=== PATIENT | female | born 1945 | race Caucasian/White ===

== ENCOUNTER 2020-03-07 12:19 | Outpatient (CLI) | payer MEDICARE, SELFPAY ==
--- NOTE | ~2020-03-07 | MM_ITS ---
EXAMINATION: MM screening david BI w elvis HISTORY: Screening mammogram TECHNIQUE: Craniocaudal and mediolateral oblique 3-D tomosynthesis images were obtained and synthetic 2-D images were generated. CAD analysis was submitted and interpreted. COMPARISON: 10/29/2017, 12/03/2015, 11/29/2013 bilateral digital screening mammogram examinations BREAST PARENCHYMAL COMPOSITION: There are scattered areas of fibroglandular density. FINDINGS: There is no evidence of suspicious mass, calcification, or architectural distortion to sugg est malignancy in either breast. There has been no suspicious interval change. IMPRESSION: 1. No mammographic evidence of malignancy. 2. Recommend routine screening mammography in one year. BI-RADS Category 1: Negative Reviewed, dictated and finalized at location A. [employer]
== END 2020-03-07 12:20 | disposition home or self-care (01) ==
LOC: ANHIMG 12:27
PROVIDERS: Family Provider Family Medicine Adolescent Medicine; PCP Family Medicine Adolescent Medicine; Visit Provider Family Medicine Adolescent Medicine
DX: Z12.31 Encounter for screening mammogram for malignant neoplasm of breast (principal)
CPT/HCPCS: 77063; 77067

== ENCOUNTER 2022-01-20 00:18 | Day surgery (SDC) | payer MEDICARE, SELFPAY ==
[2022-01-05 13:20] VITALS: BMI 31.8
[2022-01-20 06:29] VITALS: BMI 31.6
[2022-01-20 06:32] VITALS: BP 131/79; PULSE 95; RESP 20; TEMP 36.2; O2SAT 97
[2022-01-20] MEDS: LACTATED RINGERS 1,000 ML 150 ML IV CONT (06:39)
[2022-01-20 06:44] LABS: Glucose Point of Care 151 mg/dl (65-105)
--- NOTE | 2022-01-20 06:46 | WPDANESEPPF ---
Anes - Initial Pre Proc Eval Procedure: Operation Date: 01/20/22 07:30 Proposed Procedures p Colonoscopy - Vignesh Pineda MD Date/Time: 01/20/22 06:46 Surgeon: Vignesh Pineda MD Pre Op Diagnosis: occult GI bleed Patient Data Age: 76 Gender: F Height: 1.65 m Weight: 86.3 kg Last Vital Signs Temp 36.2 C L 01/20/22 06:32 Pulse 95 01/20/22 06:32 Resp 20 01/20/22 06:32 BP 131/79 01/20/22 06:32 Pulse Ox 97 01/20/22 06:32 O2 Del Method Room Air 01/20/22 06:32 Allergies Allergy/AdvReac Type Severity Reaction Status Date / Time No Known Allergies Allergy Verified 01/20/22 06:27 Home Medications Medication Instructions Recorded Confirmed Type hydrochlorothiazide 25 mg tablet See Rx Instructions .Route 10/01/21 01/05/22 Rx .COMPLEX #90 tabs lisinopril 10 mg tablet 10 mg PO DAILY #90 tabs 10/01/21 01/05/22 Rx meloxicam 15 mg tablet See Rx Instructions .Route 10/01/21 01/05/22 Rx .COMPLEX #90 tabs venlafaxine 37.5 mg See Rx Instructions .Route 10/01/21 01/05/22 Rx capsule,extended release 24 hr .COMPLEX #90 caps cranberry 400 mg capsule 400 mg PO DAILY 11/25/21 01/05/22 History fluconazole 100 mg tablet 100 mg PO DAILY #10 tabs 11/25/21 01/05/22 Rx multivitamin with minerals 1 tablet PO DAILY 11/25/21 01/05/22 History (Hair,Skin and Nails tablet) vhpgcvgfehcr-yrrfaslq-fgauauf-folic 1 tablet PO DAILY 11/25/21 01/05/22 History acid 400 mcg-vit K1 20 mcg tablet (One-A-Day Women's 50 Plus) vitamin B complex (B 1 tablet PO DAILY 11/25/21 01/05/22 History Complex-Vitamin B12 tablet) vitamin E (dl, acetate) 45 mg (100 45 mg PO DAILY 11/25/21 01/05/22 History unit) capsule sodium,potassium,mag sulfates 17.5 See Rx Instructions PO .COMPLEX 12/03/21 Rx gram-3.13 gram-1.6 gram oral soln #354 mL (Suprep Bowel Prep Kit) omeprazole 40 mg capsule,delayed 40 mg PO BID #60 caps 12/19/21 01/05/22 Rx release acarbose 25 mg tablet 25 mg PO TID #90 tabs 12/22/21 01/05/22 Rx simvastatin 20 mg tablet See Rx Instructions .Route 12/31/21 01/05/22 Rx .COMPLEX #90 tabs Laboratory Tests 01/20/22 06:38 POC Capillary Glucose 151 mg/dl H mg/dl (65-105) Patient hx anesthesia problems: none Family hx anesthesia problems: none Results Review: All pre-operative results and documents have been reviewed as part of the pre-operative evaluation. [facility] Past Medical History Medical History (Updated 01/20/22 @ 06:46 by Prosper Valencia DO) Asthma Diabetes type 2, controlled Essential (primary) hypertension Hx of ovarian cyst Mixed hyperlipidemia Personal history of colonic polyps Surgical History Surgical History (Updated 11/14/21 @ 07:28 by Andrés Young MD) History of partial hysterectomy (1988) Hx of bilateral oophorectomy (2000) Hx of cystoscopy (2007) remove ureteral stone Family History Family History (Updated 11/12/21 @ 13:46 by Neil Cheng MA) Father Diabetes mellitus Mother Heart disease Sibling Diabetes mellitus Sibling Diabetes mellitus Grandparent Skin cancer Social History Social History Smoking status: Never smoker Alcohol intake: never Substance use: never Substance use type: does not use Living arrangements: with family Spiritual care concerns: No Anes - Eval Final PreProcedure Day of Procedure 01/20/22 06:46 Patient weight: obese Heart: regular rate and rhythm Lungs: clear to auscultation Airway: Mallampati scale class II Neurological: alert and oriented Last oral intake: >/= 8 hours ASA classification: III Emergent: no Anesthetic plan: proceed Anesthesia type and monitoring: general GIVS and standard monitoring Results Review: All pre-operative results and documents have been reviewed as part of the pre-operative evaluation. Informed Consent: The patient's anesthetic plan and its attendant risks and benefits were discussed with the patient/family/POACourtney Brothers
--- NOTE | 2022-01-20 07:55 | PM.HPGS ---
History of Present Illness History of Present Illness Consent: Risks, benefits, and alternatives have been discussed and questions answered. Patient agrees to proceed with procedure. Chief complaint: occult GI bleed Narrative: Silvia Vicente is a 76 year old female Presents for colonoscopy. Patient's last colonoscopy was 10 years ago was unremarkable. Patient recently found to have positive stool Hemoccult. For this reason colonoscopy requested patient reports a tendency to constipation. Previously told she had irritable bowel syndrome. Family history noncontributory. Review of Systems Review of Systems: Review of systems noncontributory. [facility] Past Medical History Medical History (Updated 01/20/22 @ 06:46 by Prosper Valencia DO) Asthma Diabetes type 2, controlled Essential (primary) hypertension Hx of ovarian cyst Mixed hyperlipidemia Personal history of colonic polyps Surgical History Surgical History (Updated 11/14/21 @ 07:28 by Andrés Young MD) History of partial hysterectomy (1988) Hx of bilateral oophorectomy (2000) Hx of cystoscopy (2007) remove ureteral stone Family History Family History (Updated 11/12/21 @ 13:46 by Neil Cheng MA) Father Diabetes mellitus Mother Heart disease Sibling Diabetes mellitus Sibling Diabetes mellitus Grandparent Skin cancer Social History Social History Smoking status: Never smoker Alcohol intake: never Substance use: never Substance use type: does not use Living arrangements: with family Spiritual care concerns: No Meds Home Medications and Allergies Home Medications Medication Instructions Recorded Confirmed Type hydrochlorothiazide 25 mg tablet See Rx Instructions .Route 10/01/21 01/05/22 Rx .COMPLEX #90 tabs lisinopril 10 mg tablet 10 mg PO DAILY #90 tabs 10/01/21 01/05/22 Rx meloxicam 15 mg tablet See Rx Instructions .Route 10/01/21 01/05/22 Rx .COMPLEX #90 tabs venlafaxine 37.5 mg See Rx Instructions .Route 10/01/21 01/05/22 Rx capsule,extended release 24 hr .COMPLEX #90 caps cranberry 400 mg capsule 400 mg PO DAILY 11/25/21 01/05/22 History fluconazole 100 mg tablet 100 mg PO DAILY #10 tabs 11/25/21 01/05/22 Rx multivitamin with minerals 1 tablet PO DAILY 11/25/21 01/05/22 History (Hair,Skin and Nails tablet) qifyazgleirm-bzrjjptc-qxnizob-folic 1 tablet PO DAILY 11/25/21 01/05/22 History acid 400 mcg-vit K1 20 mcg tablet (One-A-Day Women's 50 Plus) vitamin B complex (B 1 tablet PO DAILY 11/25/21 01/05/22 History Complex-Vitamin B12 tablet) vitamin E (dl, acetate) 45 mg (100 45 mg PO DAILY 11/25/21 01/05/22 History unit) capsule sodium,potassium,mag sulfates 17.5 See Rx Instructions PO .COMPLEX 12/03/21 Rx gram-3.13 gram-1.6 gram oral soln #354 mL (Suprep Bowel Prep Kit) omeprazole 40 mg capsule,delayed 40 mg PO BID #60 caps 12/19/21 01/05/22 Rx release acarbose 25 mg tablet 25 mg PO TID #90 tabs 12/22/21 01/05/22 Rx simvastatin 20 mg tablet See Rx Instructions .Route 12/31/21 01/05/22 Rx .COMPLEX #90 tabs Allergies Allergy/AdvReac Type Severity Reaction Status Date / Time No Known Allergies Allergy Verified 01/20/22 06:27 Vital Signs Vital Signs - 24 hr 01/20/22 06:32 Temperature 97.2 F L Pulse Rate 95 Respiratory Rate 20 Blood Pressure 131/79 Pulse Oximetry 97 Oxygen Delivery Room Air Exam Narrative: Physical exam reveals patient to be alert. Vital signs stable. HEENT exam is unremarkable. Patient is anicteric. Lungs are clear to auscultation and percussion. Heart is without murmur or extra sounds. Abdomen bowel sounds are present soft nontender with no organomegaly. Digital external rectal exam is normal. Assessment and Plan Assessment and plan (1) Positive occult stool blood test: Code(s): R19.5 - Other fecal abnormalities Status: Acute Assessment and Plan: Patient with positive stool for
[2022-01-20 07:58] VITALS: BP 116/62; PULSE 91; RESP 17; O2SAT 99
[2022-01-20 08:08] VITALS: BP 122/61; PULSE 77; RESP 21; O2SAT 99
[2022-01-20 08:18] VITALS: BP 120/68; PULSE 74; RESP 18; O2SAT 99
== END 2022-01-20 08:26 | disposition home or self-care (01) ==
PROVIDERS: PCP Family Medicine Adolescent Medicine; Visit Provider Internal Medicine Gastroenterology
PROC: 0DJD8ZZ Inspection of Lower Intestinal Tract, Via Natural or Artificial Opening Endoscopic (ICD-10-PCS; CPT 45378; principal; 2022-01-20 07:30)
DX: Z12.11 Encounter for screening for malignant neoplasm of colon (principal); D12.2 Benign neoplasm of ascending colon; K64.8 Other hemorrhoids; R19.5 Other fecal abnormalities; I10 Essential (primary) hypertension; E11.9 Type 2 diabetes mellitus without complications; E78.2 Mixed hyperlipidemia; E66.9 Obesity, unspecified; Z68.31 Body mass index [BMI] 31.0-31.9, adult
CPT/HCPCS: 45385; 82948; 88305; J2704; J7120

== ENCOUNTER 2022-06-04 06:46 | Day surgery (SDC) | payer MEDICARE, SELFPAY ==
[2022-06-04] VITALS (33 sets, daily range): BP systolic 104–156; BP diastolic 60–92; PULSE 66–85; RESP 12–20; TEMP 36.4; O2SAT 90–100
--- NOTE | ~2022-06-04 | XR_ITS ---
EXAMINATION: XR retrograde pyelo w/stent LT DATE: 06/04/2022 13:45 INDICATION: Left internal ureteral stent placement TECHNIQUE: Fluoroscopic images from a left internal ureteral stent placement are submitted for review . 30 seconds of fluoroscopy time. 4 fluoroscopic images FINDINGS: There is a left internal ureteral stent with the distal coil in the bladder. There is pyelosinus extr avasation of contrast which obscures the proximal coil, most likely in the renal pelvis. Correlate cl inically. IMPRESSION: 1. Left internal ureteral stent placement. Please refer to real-time procedural findings for detail s. Reviewed, dictated and finalized at location A. IMPRESSION: 1. Left internal ureteral stent placement. Please refer to real-time procedur al findings for details.
--- NOTE | ~2022-06-04 | XR_ITS ---
XR abdomen/kub 1V DATE: 06/04/2022 09:04 INDICATION: 6 x 5 mm proximal left ureteral stone with mild left hydronephrosis TECHNIQUE: COMPARISON: None FINDINGS: Approximately 5.7 mm wide x 9 mm vertical calcified calculus overlies the left ureter at th e lower L4 level. The psoas shadows appear intact. No visceromegaly is evident. There is a prominent amount of fecal ma terial in the colon but no obstruction is noted. Multilevel degenerative disc disease of the lumbar spine, degenerative spurring of the lower thoracic spine. IMPRESSION: Approximately 5.7 x 9 mm calcified calculus of left ureter and lower L4 level Prominent amount of fecal material in the colon Reviewed, dictated and finalized at Location [facility]. Reviewed, dictated and finalized at location L. IMPRESSION: Approximately 5.7 x 9 mm calcified calculus of left ureter and lowe r L4 level Prominent amount of fecal material in the colon
--- NOTE | ~2022-06-04 | CT_ITS ---
Non-contrast CT scan of the Abdomen and Pelvis Clinical indication: Left flank pain Technique: 2.5 mm axial scans were obtained through the abdomen and pelvis without intravenous or or al contrast. Dose reduction technique was used on this scan by utilizing automated exposure control a nd iterative reconstruction technique. The dose-length product (DLP) was 363.84 mGy-cm. Findings: Images through the lung bases reveal 5 mm nodule along the fissure (axial image 5).. There is a 6 x 5 mm ovoid stone at the proximal left ureter, with mild left hydronephrosis. Hounsfiel d units of the stone are in the range of 1300. Additional 2 mm nonobstructing left renal stone presen t. No right renal or right ureteral stone. No right hydronephrosis. The liver, spleen, pancreas, gallbladder, and adrenals appear normal. There is no aortic aneurysm. There is no evidence of bowel obstruction. Images through the pelvis were performed. There is no evidence of ascites or lymphadenopathy. Urinary bladder unremarkable. Patient is post hysterectomy. No pelvic mass seen. Impression: 6 x 5 mm proximal left ureteral stone, as detailed above, with mild left hydronephrosis. Additional 2 mm nonobstructing left renal stone. 5 mm left lower lobe pulmonary nodule along the fissure. According to Fleischner Society criteria, fo r a low-risk patient, no further follow-up required. For a high-risk patient, consider 12 month follo w-up CT. Reviewed, dictated and finalized at [facility]. Impression: 6 x 5 mm proximal left ureteral stone, as detailed above, with mild left hydron ephrosis. Additional 2 mm nonobstructing left renal stone. 5 mm left lower lobe pulmonary nodule along the fissure. According to Fleischne r Society criteria, for a low-risk patient, no further follow-up required. For a high-risk patient, consider 12 month follow-up CT.
[2022-06-04 07:19] LABS: Basophils Percent Auto 0.3 % (0.2-1.2); Eosinophils Absolute Auto 0.1 K/mm3 (0-0.3); Eosinophils Percent Auto 0.7 % (0-4.4); Hematocrit 35.6 % (37.0-47.0); Immature Granulocyte Absolute 0.05 K/mm3 (0.00-0.031); Immature Granulocyte Percent A 0.5 % (0-0.5); Lymphocytes Absolute Auto 1.78 K/mm3 (0.9-3.2); Lymphocytes Percent Auto 18.7 % (18.3-44.2); Mean Corpuscular HGB Conc 33.7 g/dl (32-36); Mean Corpuscular Hemoglobin 28.4 pg (26-34); Mean Corpuscular Volume 84.2 fl (80-100); Mean Platelet Volume 9.4 fl (7.4-10.4); Monocytes Absolute Auto 0.6 K/mm3 (0.1-0.6); Monocytes Percent Auto 6.3 % (2.6-8.5); Neutrophils Percent Auto 73.5 % (45.5-73.1); Platelet Count Result 291 k/mm3 (150-375); Red Blood Count 4.23 M/mm3 (4.2-5.4); Red Cell Distribution Width 13.7 % (11.5-14.5); White Blood Count 9.5 K/mm3 (4.5-10.0)
[2022-06-04 07:31] LABS: Alanine Aminotransferase 34 U/L (6-35); Albumin Level 4.3 g/dL (3.5-5.1); Alkaline Phosphatase 100 U/L (38-126); Anion Gap 11 mmol/L (8-16); Aspartate Amino Transferase 34 U/L (14-36); Bilirubin,Total 0.7 mg/dL (0.2-1.3); Blood Urea Nitrogen 21 mg/dL (7-17); Carbon Dioxide 25 mmol/L (22-30); Chloride 102 mmol/L (98-107); Estimated CRCL calculation 48 ml/min; Estimated Glomerular Filt Rate > 60; Glucose 180 mg/dL (65-110); Potassium 3.9 mmol/L (3.4-5.0); Sodium 138 mmol/L (137-145)
[2022-06-04 07:41] LABS: Glucose Point of Care 195 mg/dl (65-105)
--- NOTE | 2022-06-04 07:46 | PC.NURSE ---
Pt rang call light stating that she felt like she was going to pass out and wanted to check her sugar. RN performs a bedside glucose check and got a result of 195. States she feels nauseous and is requesting medication.
[2022-06-04] MEDS: SODIUM CHLORIDE 0.9% IV 1,000 ML 999 ML IV CONT ×2 (07:54→10:06)
[2022-06-04] MEDS: ONDANSETRON INJ 4 MG/2 ML VIAL IV PUSH (07:55)
[2022-06-04] MEDS: MORPHINE SULFATE (*CRX) 4 MG/ML INJ IV PUSH (07:57)
[2022-06-04 09:07] LABS: Appearance Urine Clear (Clear); Bacteria Urine None Seen /hpf; Bilirubin Urine Negative (Negative); Blood Urine Negative (Negative); Color Urine Yellow (Yellow); Glucose Urine UA Negative (Negative); Ketones Urine Trace mg/dL (Negative); Leukocyte Esterase Ur 1+ LEU/UL (Negative); Need Manual Microscopic Reviewed; Nitrate Urine Negative (Negative); Non Pathogenic Casts 0-2; Protein Urine Negative (Negative); RBC Urine 0-2 /hpf (0-2); Specific Grav Ur 1.018 (1.001-1.035); Squamous Epithelial Cell Urine None seen /hpf (Few); WBC Urine 0-5 /hpf
--- NOTE | 2022-06-04 09:08 | ED.ABDPAIN ---
HPI - Abdominal Pain General Chief Complaint: Abdominal Pain Stated Complaint: left flank pain Time Seen by Provider: 06/04/22 07:01 History of Present Illness HPI narrative: Patient is a 76-year-old female who presents ER with sudden onset left flank pain. Began an hour prior to arrival. Associate with nausea and sweats. Radiates into the abdomen. No fevers or chills. Has history of kidney stones in the past that required lithotripsy. Reports is 15 years ago, right-sided, and would not pass despite being 4 mm in size. No dysuria. No additional concerns. Denies alleviating factors at home. Related Data Home Medications Medication Instructions Recorded Confirmed cranberry 400 mg capsule 400 mg PO DAILY 11/25/21 01/05/22 multivitamin with minerals 1 tablet PO DAILY 11/25/21 01/05/22 (Hair,Skin and Nails tablet) artgnezkocjl-xqzjffks-njgeuer-folic 1 tablet PO DAILY 11/25/21 01/05/22 acid 400 mcg-vit K1 20 mcg tablet (One-A-Day Women's 50 Plus) vitamin B complex (B 1 tablet PO DAILY 11/25/21 01/05/22 Complex-Vitamin B12 tablet) vitamin E (dl, acetate) 45 mg (100 45 mg PO DAILY 11/25/21 01/05/22 unit) capsule Allergies Allergy/AdvReac Type Severity Reaction Status Date / Time No Known Allergies Allergy Verified 06/04/22 06:53 Review of Systems Review of Systems: All systems reviewed & are unremarkable except as noted in HPI and below Constitutional: Constitutional: Denies chills, Reports fatigue and Denies fever(s) ENT: Denies nasal congestion and Denies sore throat Cardiovascular: Cardiovascular: Denies chest pain, Denies rapid heart rate and Denies radiating jaw, neck or arm pain Respiratory: Respiratory: Denies cough and Denies dyspnea Gastrointestinal: Gastrointestinal: Denies abdominal pain, Denies diarrhea, Reports nausea and Reports vomiting Genitourinary: Genitourinary: Denies hematuria, Reports nocturia, Denies dysuria and Reports flank pain PMFSH Past Medical History Medical History (Updated 06/04/22 @ 09:44 by Jaspreet Naranjo MD) Asthma Diabetes type 2, controlled Essential (primary) hypertension Hx of ovarian cyst Mixed hyperlipidemia Personal history of colonic polyps Surgical History Surgical History (Updated 11/14/21 @ 07:28 by Andrés Young MD) History of partial hysterectomy (1988) Hx of bilateral oophorectomy (2000) Hx of cystoscopy (2007) remove ureteral stone Family History Family History (Updated 11/12/21 @ 13:46 by Neil Cheng MA) Father Diabetes mellitus Mother Heart disease Sibling Diabetes mellitus Sibling Diabetes mellitus Grandparent Skin cancer Social History Social History Smoking status: Never smoker Alcohol intake: never Substance use: never Substance use type: does not use Living arrangements: with family Spiritual care concerns: No Exam Narrative: GENERAL: Uncomfortable-appearing, well-nourished, and in no acute distress. HEAD: Normocephalic, atraumatic. ENT: Mucous membranes moist. NECK: Supple. CHEST: Clear to auscultation. No respiratory distress. HEART: Regular rate and rhythm. Normal peripheral pulses. ABDOMEN: Soft, nontender, nondistended. EXTREMITIES: Normal range of motion. No edema. SKIN: Warm, dry, no rash. NEURO: Alert and oriented x3. PSYCH: Normal mood and affect. Course Course Emergency Course: Patient still quite uncomfortable. I discussed with urology. They plan to take patient to the OR for stenting. Patient aware of diagnosis and treatment plan. Patient will be given additional dose of morphine for pain. Vital Signs Vital signs: Vital Signs Temperature 97.6 F 06/04/22 06:53 Pulse Rate 66 06/04/22 06:53 Respiratory Rate 06/04/22 06:53 Blood Pressure 137/81 06/04/22 06:53 Pulse Oximetry 94 06/04/22 06:53 Temperature 97.6 F 06/04/22 06:53 Pulse Rate 66 06/04/22 06:53 Respiratory Rate 06/04/22 06:53 Blood Pressure 136/73
[2022-06-04 09:09] LABS: Add Urine Microscopic? YES
--- NOTE | 2022-06-04 10:02 | ECG_ITS ---
Measurements Intervals [place] Rate: 67 P: 61 GA: 214 QRS: 16 QRSD: 82 T: 38 QT: 402 QTc: 426 Interpretive Statements SINUS RHYTHM WITH FIRST DEGREE AV BLOCK NO PREVIOUS ECG AVAILABLE FOR COMPARISON Electronically Signed On 06-04-2022 18:31:31 CDT by Blaze Sheppard M.D.
[2022-06-04] MEDS: MORPHINE SULFATE (*CRX) 2 MG/ML INJ IV PUSH (10:06)
--- NOTE | 2022-06-04 10:36 | WPDURCON ---
Assessment and Plan Assessment and plan (1) Ureterolithiasis: Code(s): N20.1 - Calculus of ureter Status: Acute Assessment and Plan: Obtain Consent: Cystoscopy, left stent placement, left retrograde pyelogram. Keep NPO. Plan to go to the OR with Dr. Claire then discharge home if doing well. Will get a KUB after surgery to confirm stone placement. We discussed doing a left ESWL next Wednesday, she will need to stop her Meloxicam tomorrow in order to proceed with the left ESWL. A urine culture has been ordered in planning for a second procedure. Plan to discharge home afterward today if patient is doing well. Urology Consult Note HPI Date Seen: 06/04/22 Time Seen: 10:30 Requesting Physician: Eduar Claire MD Primary Care Provider: Andrés Young MD Consult Narrative Reason for consult: Left Ureteral Stone Narrative: Silvia Vicente is a 76 year old female who presented to the ER today for acute onset of left flank pain that radiates to her abdomen, which is also accompanied by nausea and vomiting. She denies dysuria, hematuria, frequency or urgency to urinate. She states she had a stone 15 years ago that was removed by Dr. Claire, but otherwise has not had any trouble since. She had a CT scan today in the ER showing a 6x5mm left proximal ureteral stone and a 2mm non obstructive left kidney stone. KUB does visualize her proximal ureteral stone. Her WBC is 9.5 creatinine is 0.80 and UA is not suspicious for a UTI, however a urine culture is pending. Review of Systems Cardiovascular: Cardiovascular: Denies chest pain Respiratory: Respiratory: Reports no additional respiratory complaints Gastrointestinal: Gastrointestinal: Reports abdominal pain, Reports nausea and Reports vomiting Genitourinary: Genitourinary: Denies nocturia, Denies dysuria, Denies pelvic pain, Denies flank pain, Denies urinary incontinence, Denies urinary hesitancy and Denies urinary urgency [facility] Past Medical History Medical History Asthma Diabetes type 2, controlled Essential (primary) hypertension Hx of ovarian cyst Mixed hyperlipidemia Personal history of colonic polyps Surgical History Surgical History History of partial hysterectomy (1988) Hx of bilateral oophorectomy (2000) Hx of cystoscopy (2007) remove ureteral stone Family History Family History Father Diabetes mellitus Mother Heart disease Sibling Diabetes mellitus Sibling Diabetes mellitus Grandparent Skin cancer Social History Social History Smoking status: Never smoker Alcohol intake: never Substance use: never Substance use type: does not use Living arrangements: with family Spiritual care concerns: No Meds Home Medications and Allergies Home Medications Medication Instructions Recorded Confirmed Type hydrochlorothiazide 25 mg tablet See Rx Instructions .Route 10/01/21 01/05/22 Rx .COMPLEX #90 tabs lisinopril 10 mg tablet 10 mg PO DAILY #90 tabs 10/01/21 01/05/22 Rx meloxicam 15 mg tablet See Rx Instructions .Route 10/01/21 01/05/22 Rx .COMPLEX #90 tabs venlafaxine 37.5 mg See Rx Instructions .Route 10/01/21 01/05/22 Rx capsule,extended release 24 hr .COMPLEX #90 caps cranberry 400 mg capsule 400 mg PO DAILY 11/25/21 01/05/22 History fluconazole 100 mg tablet 100 mg PO DAILY #10 tabs 11/25/21 01/05/22 Rx multivitamin with minerals 1 tablet PO DAILY 11/25/21 01/05/22 History (Hair,Skin and Nails tablet) wicwesmfyxkd-zqggtauj-ulaqrpm-folic 1 tablet PO DAILY 11/25/21 01/05/22 History acid 400 mcg-vit K1 20 mcg tablet (One-A-Day Women's 50 Plus) vitamin B complex (B 1 tablet PO DAILY 11/25/21 01/05/22 History Complex-Vitamin B12 tablet) vitamin E (dl, acet
[2022-06-04] MEDS: fentaNYL CITRATE INJ (*CRX) 100 MCG/2 ML VIAL 25 MCG IV PUSH (12:12)
[2022-06-04 12:22] LABS: Glucose Point of Care 148 mg/dl (65-105)
--- NOTE | 2022-06-04 12:24 | WPDHPUPDATE1 ---
History and Physical Update Update Date/Time: 06/04/22 12:24 History and Physical has been reviewed, including an updated exam of the patient. There are NO changes in the patient's condition. Risks, benefits, and alternatives have been discussed and questions answered. Patient agrees to proceed with procedure.
--- NOTE | 2022-06-04 12:31 | WPDANESEPPF ---
Anes - Initial Pre Proc Eval Procedure: Operation Date: 06/04/22 13:30 Proposed Procedures p Cystoscopy, Left Retrograde Pyelogram, Left Stent Placement - Eduar Claire MD Date/Time: 06/04/22 12:31 Surgeon: Eduar Claire MD Pre Op Diagnosis: left flank pain Patient Data Age: 76 Gender: F Height: 1.65 m Weight: 68 kg Last Vital Signs Temp 36.4 C 06/04/22 11:15 Pulse 69 06/04/22 11:15 Resp 16 06/04/22 11:15 BP 148/66 H 06/04/22 11:15 Pulse Ox 95 06/04/22 11:15 O2 Del Method Room Air 06/04/22 11:15 Allergies Allergy/AdvReac Type Severity Reaction Status Date / Time No Known Allergies Allergy Verified 06/04/22 12:27 Home Medications Medication Instructions Recorded Confirmed Type hydrochlorothiazide 25 mg tablet See Rx Instructions .Route 10/01/21 01/05/22 Rx .COMPLEX #90 tabs lisinopril 10 mg tablet 10 mg PO DAILY #90 tabs 10/01/21 01/05/22 Rx meloxicam 15 mg tablet See Rx Instructions .Route 10/01/21 01/05/22 Rx .COMPLEX #90 tabs venlafaxine 37.5 mg See Rx Instructions .Route 10/01/21 01/05/22 Rx capsule,extended release 24 hr .COMPLEX #90 caps cranberry 400 mg capsule 400 mg PO DAILY 11/25/21 01/05/22 History fluconazole 100 mg tablet 100 mg PO DAILY #10 tabs 11/25/21 01/05/22 Rx multivitamin with minerals 1 tablet PO DAILY 11/25/21 01/05/22 History (Hair,Skin and Nails tablet) ivjkzzqahfxr-xkyhodfn-xhuuxto-folic 1 tablet PO DAILY 11/25/21 01/05/22 History acid 400 mcg-vit K1 20 mcg tablet (One-A-Day Women's 50 Plus) vitamin B complex (B 1 tablet PO DAILY 11/25/21 01/05/22 History Complex-Vitamin B12 tablet) vitamin E (dl, acetate) 45 mg (100 45 mg PO DAILY 11/25/21 01/05/22 History unit) capsule sodium,potassium,mag sulfates 17.5 See Rx Instructions PO .COMPLEX 12/03/21 Rx gram-3.13 gram-1.6 gram oral soln #354 mL (Suprep Bowel Prep Kit) omeprazole 40 mg capsule,delayed 40 mg PO BID #60 caps 12/19/21 01/05/22 Rx release acarbose 25 mg tablet 25 mg PO TID #90 tabs 12/22/21 01/05/22 Rx simvastatin 20 mg tablet See Rx Instructions .Route 12/31/21 01/05/22 Rx .COMPLEX #90 tabs Laboratory Tests 06/04/22 06/04/22 06/04/22 07:11 07:11 07:11 WBC 9.5 K/mm3 K/mm3 (4.5-10.0) RBC 4.23 M/mm3 M/mm3 (4.2-5.4) Hgb 12.0 g/dL g/dL (12.0-15.0) Hct 35.6 % L % (37.0-47.0) MCV 84.2 fl fl (80-100) MCH 28.4 pg pg (26-34) MCHC 33.7 g/dl g/dl (32-36) RDW 13.7 % % (11.5-14.5) Plt Count 291 k/mm3 k/mm3 (150-375) MPV 9.4 fl fl (7.4-10.4) Immature Gran % (Auto) 0.5 % % (0-0.5) Neut % (Auto) 73.5 % H % (45.5-73.1) Lymph % (Auto) 18.7 % % (18.3-44.2) [place] % (Auto) 6.3 % % (2.6-8.5) Eos % (Auto) 0.7 % % (0-4.4) Baso % (Auto) 0.3 % % (0.2-1.2) Lymph # (Auto) 1.78 K/mm3 K/mm3 (0.9-3.2) [place] # (Auto) 0.6 K/mm3 K/mm3 (0.1-0.6) Eos # (Auto) 0.1 K/mm3 K/mm3 (0-0.3) Baso # (Auto) 0.0 K/mm3 K/mm3 (0.0-0.1) Abs Immat Gran (auto) 0.05 K/mm3 H K/mm3 (0.00-0.031) Absolute Neuts (auto) 7.0 K/mm3 H K/mm3 (1.3-6.7) Absolute Nucleated RBC 0.0 K/mm3 K/mm3 (0.0-0.012) Nucleated RBC % 0.0 % % (0.0-0.2) Sodium 138 mmol/L mmol/L (137-145) Potassium 3.9 mmol/L mmol/L (3.4-5.0) Chloride 102 mmol/L mmol/L (98-107) Carbon Dioxide 25 mmol/L mmol/L (22-30) Anion Gap 11 mmol/L mmol/L (8-16) BUN 21 mg/dL H mg/dL (7-17) Creatinine 0.80 mg/dL mg/dL (0.7-1.0) Estim Creat Clear Calc 48 ml/min ml/min Estimated GFR > 60 (59 - ) Glucose 180 mg/dL H mg/dL (65-110) POC Capillary Glucose Calcium 9.0 mg/dL mg/dL (8.4-10.2) Total Bilirubin 0.7 mg/dL mg/dL
[2022-06-04] MEDS: ceFAZolin 2 GM/D5W 50 ML 2 GM/50 ML BAG IVPB (13:16)
[2022-06-04] MEDS: LIDOCAINE HCL 2% GEL UROJET 10 ML PKG MUCOUS MEM (13:35)
--- NOTE | 2022-06-04 13:38 | P.OP_ITS ---
Procedure Note - Detailed Date of Procedure 06/04/22 Pre-op Diagnosis left flank pain Left ureteral calculus Post-op Diagnosis Same Procedure Performed Cystoscopy, left retrograde pyelogram, left stent placement 4.8 [place] contour Surgeon Eduar Claire MD Anesthesia General Description of Procedure Patient is taken the operative suite correctly identified. Once anesthesia was obtained she was placed in dorsal lithotomy position and prepped and draped usual sterile fashion. Twenty-two [place] scope inserted the bladder no tumors noted. Left ureteral orifice was cannulated with a [place] and a pyelogram was performed. She has an obstructing stone in the proximal ureter. She also was noted to have what appears to be some extravasation from the calices. We were able to manipulate a guidewire up into the renal pelvis. 4.8 [place] contour stent was then placed with the proximal end coiled in the renal pelvis and the distal in the bladder. 2% viscous lidocaine was inserted into the bladder. Patient is taken recovery stable condition. She will be discharged home pain meds and antibiotic. Plan on outpatient lithotripsy and she is to call for that appointment Drains Yes Packing No Pathology None sent Complications No immediate complications Condition Stable Disposition PACU
[2022-06-04] MEDS: LACTATED RINGERS 1,000 ML 30 ML IV CONT (13:42)
[2022-06-04 14:17] LABS: Glucose Point of Care 144 mg/dl (65-105)
--- NOTE | 2022-06-04 15:17 | SUR.PHASEII ---
RN called Dr. Claire in regards to prescriptions for this patient. Office staff said he planned on having Betsy send prescriptions to preferred pharmacy.
== END 2022-06-04 15:42 | disposition home or self-care (01) ==
LOC: ANHED 09:44 → ANHSURGERY 10:09
PROVIDERS: Emergency Provider Emergency Medicine; PCP Family Medicine Adolescent Medicine; Visit Provider Urology
PROC: (CPT 52352; principal; 2022-06-04 13:30)
DX: N13.2 Hydronephrosis with renal and ureteral calculous obstruction (principal); I10 Essential (primary) hypertension; E11.9 Type 2 diabetes mellitus without complications; E78.2 Mixed hyperlipidemia; J45.909 Unspecified asthma, uncomplicated
CPT/HCPCS: 52332; 36415; 74018; 74176; 74420; 80053; 81001; 82948; 85025; 87077; 87086; 87088; 93005; 96361; 96374; 96375; 96376; 99285; C1758; C1769; C2617; J0330; J0690; J2270; J2405; J2704; J3010; J7030; J7120

== ENCOUNTER 2023-01-13 13:30 | Outpatient (CLI) | payer MEDICARE, SELFPAY ==
--- NOTE | ~2023-01-13 | XR_ITS ---
EXAMINATION: XR chest 2V 01/13/2023 13:58 INDICATION: Cough. PROCEDURE: 2 view chest COMPARISON: 10/13/2006 FINDINGS: The lungs are clear. The cardiomediastinal silhouette is within normal limits. There are no pleural effusions. There is no pneumothorax suspected. IMPRESSION: 1: NO ACUTE CARDIOPULMONARY DISEASE. Reviewed, dictated and finalized at location B. 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
--- NOTE | ~2023-01-13 | XR_ITS ---
EXAM: XR hand RT 2V DATE: 01/13/2023 13:59 HISTORY: SWOLLEN 3RD AND 4TH DIGIT, GRIPPING ISSUES . COMPARISON: 06/28/2014. FINDINGS: Normal mineralization. No fracture or dislocation. No lytic or blastic lesion. Scattered o steoarthritic type changes, most pronounced in the right fourth PIP joint, right third MCP joint, and right trapeziometacarpal joint. No erosion or periosteal change. Soft tissues within normal limits. IMPRESSION: Moderate polyarticular osteoarthritis. Reviewed, dictated and finalized at location K. 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
== END 2023-01-13 13:31 | disposition home or self-care (01) ==
PROVIDERS: PCP Family Medicine Adolescent Medicine; Visit Provider Family Medicine Adolescent Medicine
DX: R05.9 Cough, unspecified (principal); M19.041 Primary osteoarthritis, right hand; K44.9 Diaphragmatic hernia without obstruction or gangrene
CPT/HCPCS: 71046; 73120

== ENCOUNTER 2023-05-31 14:03 | Outpatient (CLI) | payer MEDICARE, SELFPAY ==
--- NOTE | ~2023-05-31 | MM_ITS ---
EXAMINATION: MM screening david BI w elvis HISTORY: Screening TECHNIQUE: Craniocaudal and mediolateral oblique 3-D tomosynthesis images were obtained and synthetic 2-D images were generated. CAD analysis was submitted and interpreted. COMPARISON: No prior mammogram is available for comparison at this institution. BREAST PARENCHYMAL COMPOSITION: Not dense: There are scattered areas of fibroglandular density. FINDINGS: There is no evidence of suspicious mass, calcification, or architectural distortion to sugg est malignancy in either breast. There has been no suspicious interval change. IMPRESSION: 1. No mammographic evidence of malignancy. 2. Recommend routine screening mammography in one year. BI-RADS Category 1: Negative Reviewed, dictated and finalized at location B.
== END 2023-05-31 14:04 | disposition home or self-care (01) ==
LOC: ANHIMG 14:05
PROVIDERS: PCP Family Medicine Adolescent Medicine; Visit Provider Family Medicine Adolescent Medicine
DX: Z12.31 Encounter for screening mammogram for malignant neoplasm of breast (principal)
CPT/HCPCS: 77063; 77067

== ENCOUNTER 2025-01-18 08:59 | Outpatient (CLI) | payer MEDICARE, SELFPAY ==
--- NOTE | ~2025-01-18 | MM_ITS ---
EXAMINATION: MM screening david BI w elvis HISTORY: Screening. TECHNIQUE: Craniocaudal and mediolateral oblique 3-D tomosynthesis images were obtained and synthetic 2-D images were generated. CAD analysis was submitted and interpreted. COMPARISON: 2023, 2020, and 2017 BREAST PARENCHYMAL COMPOSITION: Not Dense: There are scattered areas of fibroglandular FINDINGS: No suspicious masses are seen. There are no suspicious calcifications. No unexplained architectural distortion is seen. There are no skin or nipple abnormalities identified. There is no adenopathy seen on the images submitted. IMPRESSION: No mammographic evidence to suggest malignancy is seen. The patient may return to screening mammography as per ACR guidelines. BI-RADS 1 - Negative. Reviewed, dictated and finalized at location C. 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
== END 2025-01-18 09:00 | disposition home or self-care (01) ==
LOC: ANHFOHIMG 09:02
PROVIDERS: PCP Family Medicine Adolescent Medicine; Visit Provider Family Medicine Adolescent Medicine
DX: Z12.31 Encounter for screening mammogram for malignant neoplasm of breast (principal)
CPT/HCPCS: 77063; 77067